=== PATIENT | male | born 2000 | race Caucasian/White ===

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

== ENCOUNTER 2022-09-15 09:42 | Emergency (ER) | payer MEDICAID, SELFPAY ==
[2022-09-15 09:51] VITALS: BP 155/86; PULSE 86; RESP 18; TEMP 36.6; O2SAT 98
--- NOTE | 2022-09-15 18:24 | NUR.NOTE ---
Nursing Note: Access called stating that patient LWBS @ 2599
== END 2022-09-15 10:49 | disposition left before discharge ==
LOC: ER 09:50
PROVIDERS: PCP Pediatrics
DX: Z53.21 Procedure and treatment not carried out due to patient leaving prior to being seen by health care provider (principal)
CPT/HCPCS: 85025

== ENCOUNTER 2022-09-16 22:04 | Emergency (ER) | payer MEDICAID, SELFPAY ==
[2022-09-16 22:24] VITALS: BP 142/75; PULSE 87; RESP 16; TEMP 36.3; O2SAT 98
--- NOTE | 2022-09-16 23:00 | ED.GENADUL_ITS ---
Discharge Plan Disposition Patient Disposition: HOME Condition: Stable Discharge Details Clinical Impression: Constipation Primary Care Provider: Anjel Healy ED Provider: Jerry Cervantes Home Meds and New Rx's Prescriptions: New docusate sodium [Colace] 100 mg capsule 100 mg PO DAILY 20 Days Qty: 20 0RF Discharge Instructions Instructions: Constipation (ED) Additional Instructions: Please follow-up with your primary care physician. Please return to the emergency department for any worsening symptoms. Medical Decision Making 22-year-old male history of constipation presents with constipation over the last 6 days, has developed some abdominal discomfort, nausea dry heaving and one episode of nonbloody nonbilious emesis, abdomen soft nontender nondistended, afebrile nontoxic, no active vomiting. Consider symptomatic constipation versus viral enterocolitis versus unlikely cholecystitis appendicitis bowel obstruction or other serious intra-abdominal pathology. Will trial antiemetics and laxatives. Home care instructions and return precautions given. HPI General Date/Time Provider Initiated Documentation: 09/16/22 22:33 . HPI Narrative: 22-year-old male history of constipation, presents with constipation over the last 6 days, endorses mild abdominal discomfort, he is still able to pass flatus, 1 episode of nonbloody nonbilious emesis did have some retching multiple times earlier today, no current symptoms at this time. Does not take any medications. Related Data Home Medications Medication Instructions Recorded Confirmed docusate sodium 100 mg capsule 100 mg PO DAILY 20 days #20 caps 09/16/22 (Colace) Previous Rx's Medication Instructions Recorded docusate sodium 100 mg capsule 100 mg PO DAILY 20 days #20 caps 09/16/22 (Colace) Allergies Allergy/AdvReac Type Severity Reaction Status Date / Time amoxicillin AdvReac Diarrhea,vo Verified 09/16/22 22:29 mmiting General Stated Complaint: Nausea/Vomit/Diar MICKEY: 3 Review of Systems Narrative: Review of Systems Constitutional: negative Eyes: negative ENT: negative Cardiovascular: negative Respiratory: negative Gastrointestinal: Nausea, vomiting, constipation : negative Musculoskeletal: negative Skin: negative Neurologic: negative Psych: negative PFSH All Active Problems (Updated 09/16/22 @ 23:03 by Jerry Cervantes MD) Constipation (Acute) Attention deficit hyperactivity disorder (ADHD), combined type (Acute) Well adult health check (Acute) Medical History ADHD Surgical History Circumcision Family History Mother Asthma Father No problems noted. Social History Smoking/Tobacco Use Status: Never Smoking risk assessment performed?: Yes Alcohol Intake: never Drug use: Never Substance use type: does not use Do you feel safe at home: Yes Do you feel safe in your relationship?: Yes Exam Narrative Exam Narrative: Physical Examination General: alert, awake, cooperative, resting comfortably, no acute distress HEENT: normocephalic, atraumatic; PERRL, EOM intact, conjunctiva normal; no nasal discharge; moist mucous membranes, oral and pharyngeal mucosa normal, tolerating secretions Neck: supple, trachea midline; full ROM Chest: normal to inspection Respiratory: normal respiratory effort, speaking in full sentences, clear to auscultation, no wheezing, rales or rhonchi Cardiac: regular rate, regular rhythm, S1S2 intact, no murmurs rubs or gallops GI: abdomen soft, non-tender, non-distended; no palpable mass or hepatosplenomegaly Skin: no lesions, rashes or trauma appreciated Neuro: AAOx3, normal speech, moving all extremities Psych: Appropriate mood and affect Course Vital Signs Vital signs: Vital Signs Temperature 36.3 C L 09/16/22 22:24 Pulse 87 09/16/22 22:24 Respiratory Rate 16 09/16/22 22:24 Blood Pressure 142/75 H 09/16/22 22:24 Pulse Oximetry 98 09/16/22 22:24 Temperature 36.3 C L 09/16/22 22:24 Temperature Source Temporal Artery Scan 09/16/22 22:24 Pulse 87 09/16/22 22:24 Respiratory Rate 16 09/16/22 22:24 Respiratory Effort 09/16/22 22:24 Blood Pressure 142/75 H 09/16/22 22:24 Blood Pressure Position Sitting 09/16/22 22:24 Pulse Oximetry 98 09/16/22 22:24 Oxygen Delivery Method Room Air 09/16/22 22:24 Oxygen Flow Rate 0 09/16/22 22:24 Pain Level 8 09/16/22 22:24
[2022-09-16] MEDS: Bisacodyl 5 MG TABEC PO (23:05)
[2022-09-16] MEDS: Ondansetron O.D.T. 4 MG TABEF (23:05)
== END 2022-09-16 23:18 | disposition home or self-care (01) ==
PROVIDERS: Emergency Provider Emergency Medicine; PCP Pediatrics
DX: K59.00 Constipation, unspecified (principal); F90.9 Attention-deficit hyperactivity disorder, unspecified type
CPT/HCPCS: 99283; 99284

== ENCOUNTER 2025-01-18 20:16 | Emergency (ER) | payer SELFPAY ==
[2025-01-18 20:19] VITALS: BP 138/71; PULSE 98; RESP 16; TEMP 37.3; O2SAT 96
[2025-01-18 20:41] VITALS: BP 138/71; PULSE 98; RESP 16; TEMP 37.3; O2SAT 96
[2025-01-18 21:05] LABS: Abs Immature Grans 0.03 10^3/uL (0.0-0.06); Absolute Basophil Count 0.06 10^3/uL (0.0-0.2); Absolute Eosinophil Count 0.18 10^3/uL (0.0-0.7); Absolute Lymphocyte Count 2.37 10^3/uL (1.2-3.4); Absolute Monocyte Count 0.64 10^3/uL (0.1-0.8); Absolute Neutrophil Count 5.81 10^3/uL (1.2-6.7); Basophils % 0.7 %; HCT 43.2 % (40.0-50.0); HGB 14.5 g/dL (13.5-17.5); Immature Grans % 0.3 %; Lymphocytes % 26.1 %; MCH 28.2 pg (27.0-33.0); MCHC 33.6 % (32.0-36.0); MCV 84 fL (80-95); MPV 12.5 fL (8.0-11.0); Neutrophils % 63.9 %; Platelet Count 218 10^3/uL (130-400); RBC 5.15 10^6/uL (4.36-5.78); RDW 12.7 % (11.8-14.1); RDW-SD 38.6 fL; WBC 9.09 10^3/uL (4.4-10.8)
[2025-01-18 21:21] LABS: ALT 53 U/L (16-63); AST 23 U/L (15-37); Albumin 4.3 g/dL (3.4-5.0); Alkaline Phosphatase 109 U/L (46-116); Anion Gap 10.9 mmol/L (3-11); BUN 9 mg/dL (7-18); Bilirubin, Total 0.54 mg/dL (0.2-1.0); CO2 28.1 mmol/L (21.0-32.0); Calcium 9.5 mg/dL (8.5-10.1); Chloride 102 mmol/L (98-107); Estimated GFR 109.13 (mL/min/1.73m2); Glucose 135 mg/dL (74-106); Lipase 32 U/L (<78); Potassium 3.5 mmol/L (3.5-5.1); Sodium 141 mmol/L (136-145); Total Protein 8.1 g/dL (6.4-8.2)
[2025-01-18 21:24] LABS: PTT Activated 28.4 sec (20.6-30.2); Prothrombin Time 10.4 sec (9.1-11.1)
[2025-01-18 21:35] LABS: Bilirubin Negative (Negative); Blood Small (Negative); Clarity Clear (Clear); Glucose Negative (Negative); Ketones 15 mg/dL (Negative); Leukocyte Esterase Negative (Negative); Nitrite Negative (Negative); Specific Gravity 1.015 (1.005-1.025); Urobilinogen 0.2 mg/dL (Up to 0.2); pH 6.5 (5-8)
[2025-01-18 21:44] LABS: WBC 0-2 HPF (0-5)
--- NOTE | 2025-01-18 21:44 | W.ED.GENAD ---
Discharge Plan Disposition Patient Disposition: Home Condition: Stable Discharge Details Clinical Impression: Rectal bleeding Primary Care Provider: Anjel Healy ED Provider: Anjel Lopez Home Meds and New Rx's Prescriptions: No Action No Known Home Meds Discharge Instructions Instructions: Bloody Stools, Adult ED Additional Instructions: You were seen in the emergency department for your rectal bleeding today, this is likely due to internal hemorrhoid, you state you have had hemorrhoids in the past, your hemoglobin is normal and your CT shows no evidence of significant GI bleeding. This should self resolve but if you continue to experience significant bleeding with stools you may need to be reevaluated especially with severe abdominal pain fever or any black stools with significant vomiting. Please follow-up with your primary care for referral to general surgery for chronic subacute rectal bleeding. Referrals: Anjel Healy MD [Primary Care Provider] - Discharge Data Discharge Date/Time-TO BE ENTERED AT DEPARTURE: 01/18/25 23:33 HPI General Date/Time Provider Initiated Documentation: 01/18/25 20:25. HPI Narrative: 24 year-old male presents to ED today by POV/ambulating with a chief complaint of lower abdominal pain with onset for the past several weeks with rectal bleeding with a stool today. Quality described as significant rectal bleeding, saturating 4-5 times wiping- endorses history of hemorrhoids, no radiation to dizziness, syncope, black stools, vomiting, fever, severe abdominal pain. Severity is described as moderate. Palliating factors include nothing specific attempted. Provoking factors include nothing specific. Events leading up to the incident/Associated Symptoms: Patient has not had a colonoscopy. Patient not anticoagulated. Related Data Home Medications ?Medication ?Instructions ?Recorded ?Confirmed Unknown [No Known Home Meds] 01/18/25 01/18/25 Allergies Allergy/AdvReac Type Severity Reaction Status Date / Time amoxicillin AdvReac Diarrhea,vo Verified 01/18/25 20:23 mmiting General Stated Complaint: Abd Prob MICKEY: 3 Review of Systems All systems reviewed & are unremarkable except as noted in HPI and below Exam Narrative Exam Narrative: GENERAL APPEARANCE: Well-nourished, non-toxic, awake and alert, atraumatic, no acute distress. SKIN: Warm, pink, dry, intact, without rashes/lesions/ulcerations. HEAD: Normocephalic, atraumatic, normal hair distribution for gender/age. EYES: Normal conjunctiva, no exudates on lids/lashes. ENT: Nares patent, no circumoral cyanosis, no facial swelling NECK: Supple, trachea midline, painless cervical ROM. LUNGS/CHEST: Lungs CTA bilaterally, non-labored respirations, normal A/P diameter, symmetrical expansion, no chest wall deformity HEART (CV/PV): Regular rate and rhythm without murmur, no peripheral edema, no JVD. ABDOMEN: Soft, non-distended, no guarding, mild L lower abdominal tenderness. patient deferred RAQUEL MSK: Normal ROM, no swelling/deformity to bilateral UEs or LEs, moving all extremities without weakness, no cyanosis, spine midline without tenderness, normal curvature. NEURO: Mental Status AAOx4 - alert to person, place, time, events No facial droop, no forehead involvement. Motor: No focal weakness - strength 5/5 in bilateral UEs and LEs, proximal and distal, symmetric. Sensory: sensation intact to light touch globally. Gait normal: patient ambulated without ataxia into ED room. PSYCH: euthymic, cooperative, pleasant, appropriate speech Course Vital Signs Vital signs: Vital Signs Temperature 37.3 C 01/18/25 20:19 Pulse 98 H 01/18/25 20:19 Respiratory Rate 16 01/18/25 20:19 Blood Pressure 138/71 01/18/25 20:19 Pulse Oximetry 96 01/18/25 20:19 Temperature 37.3 C 01/18/25 20:41 Temperature Source Oral 01/18/25 20:41 Pulse 98 H 01/18/25 20:41 Respiratory Rate 16 01/18/25 20:41 Blood Pressure 138/71 01/18/25 20:41 Pulse Oximetry 96 01/18/25 20:41 Oxygen Delivery Method Room Air 01/18/25 20:41 Oxygen Flow Rate 0 01/18/25 20:41 Pain Level 6 01/18/25 20:42 Lab/Test Results Lab/Test Results: Laboratory Tests Range/Units 01/18/25 01/18/25 20:40 20:55 WBC (4.4-10.8) 10^3/uL 9.09 RBC (4.36-5.78) 10^6/uL 5.15 Hgb (13.5-17.5) g/dL 14.5 Hct (40.0-50.0) % 43.2 MCV (80-95) fL 84 MCH (27.0-33.0) pg 28.2 MCHC (32.0-36.0) % 33.6 RDW (11.8-14.1) % 12.7 Plt Count (130-400) 10^3/uL 218 MPV (8.0-11.0) fL 12.5 H Immature Gran % % 0.3 Neutrophils % % 63.9 Lymphocytes % % 26.1 Monocytes % % 7.0 Eosinophils % % 2.0 Basophils % % 0.7 Nucleated RBC % (0.0-0.3) % 0.0 Absolute Neutrophils (1.2-6.7) 10^3/uL 5.81 Absolute Lymphocytes (1.2-3.4) 10^3/uL 2.37 Absolute Monocytes (0.1-0.8) 10^3/uL 0.64 Absolute Eosinophils (0.0-0.7) 10^3/uL 0.18 Absolute Basophils (0.0-0.2) 10^3/uL 0.06 PT (9.1-11.1) sec 10.4 INR (0.9-1.1) 1.0 APTT (20.6-30.2) sec 28.4 Sodium (136-145) mmol/L 141 Potassium (3.5-5.1) mmol/L 3.5 Chloride (98-107) mmol/L 102 Carbon Dioxide (21.0-32.0) mmol/L 28.1 Anion Gap (3-11) mmol/L 10.9 BUN (7-18) mg/dL 9 Creatinine (0.70-1.30) mg/dL 1.0 Est GFR (CKD-EPI 2020) (mL/min/1.73m2) 109.13 Glucose (74-106) mg/dL 135 H Calcium (8.5-10.1) mg/dL 9.5 Magnesium (1.8-2.4) mg/dL 2.0 Total Bilirubin (0.2-1.0) mg/dL 0.54 AST (15-37) U/L 23 ALT (16-63) U/L 53 Alkaline Phosphatase (46-116) U/L 109 Total Protein (6.4-8.2) g/dL 8.1 Albumin (3.4-5.0) g/dL 4.3 Lipase (<78) U/L 32 Urine Color (Yellow) Yellow Urine Clarity (Clear) Clear Urine pH (5-8) 6.5 Ur Specific [place] (1.005-1.025) 1.015 Urine Protein (Neg-Trace) mg/dL Negative Urine Ketones (Negative) mg/dL 15 H Urine Blood (Negative) Small H Urine Nitrite (Negative) Negative Urine Bilirubin (Negative) Negative Urine Urobilinogen (Up to 0.2) mg/dL 0.2 Ur Leukocyte Esterase (Negative) Negative Urine Glucose (Negative) mg/dL Negative Medical Decision Making This dictation utilizes [id number] dictation software and may contain unedited grammatical errors. 24 year-old male presents to ED today by POV/ambulating with a chief complaint of lower abdominal pain with onset for the past several weeks with rectal bleeding with a stool today. Quality described as significant rectal bleeding, saturating 4-5 times wiping- endorses history of hemorrhoids, no radiation to dizziness, syncope, black stools, vomiting, fever, severe abdominal pain. Severity is described as moderate. Palliating factors include nothing specific attempted. Provoking factors include nothing specific. Events leading up to the incident/Associated Symptoms: Patient has not had a colonoscopy. Patients' medical history: Noncontributory. Family and social history: Noncontributory. Pertinent exam findings / vital signs include benign abdomen, benign cardiopulmonary status, nontoxic and afebrile. Differential / pathologies of concern include GI bleeding, internal hemorrhoids, diarrhea, unlikely infectious diarrhea. Diagnostic studies of: -CBC, CMP, CRP/ESR, magnesium, coags, lipase, UA, CT of the abdomen pelvis with contrast. -CBC is completely benign -CRP and ESR negative -Coags benign -CMP shows no actionable abnormality -Magnesium within normal limits -Lipase negative -UA negative -CTA shows no acute pathology Interventions of: -None. ED Course/Assessment/Plan: 24-year-old male has been having some abdominal pain for the past several weeks with some rectal bleeding today, has a history of hemorrhoids, I suspect internal hemorrhoids, he declined rectal exam today, he has no evidence of severe bleeding on CTA, no anemia, no elevation of white blood cells to suspect infectious diarrhea, no evidence of diverticulitis with perforation or abscess on CTA. I stressed following up with his primary care provider for possible referral to general surgery for colonoscopy Findings not consistent with significant rectal bleeding, infectious diarrhea, colitis, inflammatory bowel disease, emergent abdominal pathology. Disposition of rectal bleeding. Patient verbalized understanding of the plan and return to ED criteria and engaged in shared decision making. Medical Records Medical records reviewed: Yes I reviewed the patient's medical records. Imaging Data Radiologic Study: Attestation: I personally reviewed and interpreted this imaging study as follows: Imaging: CT Scan Radiologist's impression: Exam: CTA Abdomen and Pelvis With Contrast Exam date and time: 01/18/2025 10:01 PM Age: 24 years old Clinical indication: Other: Rectal bleeding; Significant amt TECHNIQUE: Imaging protocol: Computed tomographic angiography of the abdomen and pelvis with contrast. Exam focused on the arteries. 3D rendering (Not supervised by radiologist): MIP and/or 3D reconstructed images were created by the technologist. Contrast material: OMNIPAQUE 350; Contrast volume: 100 ml; Contrast route: INTRAVENOUS (IV); COMPARISON: CT ABDOMEN PELVIS W 08/14/2020 4:19 PM FINDINGS: Aorta: No aortic aneurysm. No aortic dissection. Celiac trunk and mesenteric arteries: No occlusion or significant stenosis. Renal arteries: No occlusion or significant stenosis. Right iliac arteries: No occlusion or significant stenosis. Left iliac arteries: No occlusion or significant stenosis. Liver: No mass. Gallbladder and biliary ducts: Peripherally calcified 1.4 cm gallstone is present in the gallbladder. No prominent biliary ductal dilation. Pancreas: Unremarkable. No mass. No ductal dilation. Spleen: Unremarkable. No splenomegaly. Adrenal glands: Unremarkable. No mass. Kidneys and ureters: Unremarkable. No solid mass. No hydronephrosis. Stomach and bowel: Unremarkable. No obstruction. No mucosal thickening. Appendix: The appendix is visualized and appears normal. Intraperitoneal space: Unremarkable. No free air. No significant fluid collection. Lymph nodes: Unremarkable. No enlarged lymph nodes. Urinary bladder: Unremarkable. No mass. Reproductive: Unremarkable as visualized. Bones/joints: No acute fracture. Soft tissues: Unremarkable. IMPRESSION: No evidence of active GI bleed or other significant bowel abnormality. Incidentally noted cholelithiasis Dictated and Authenticated by: Ezra Aguero MD. Lab Data Lab results reviewed: Yes I reviewed the patient's lab results. Labs: Laboratory Tests Range/Units 01/18/25 01/18/25 20:40 20:55 WBC (4.4-10.8) 10^3/uL 9.09 RBC (4.36-5.78) 10^6/uL 5.15 Hgb (13.5-17.5) g/dL 14.5 Hct (40.0-50.0) % 43.2 MCV (80-95) fL 84 MCH (27.0-33.0) pg 28.2 MCHC (32.0-36.0) % 33.6 RDW (11.8-14.1) % 12.7 Plt Count (130-400) 10^3/uL 218 MPV (8.0-11.0) fL 12.5 H Immature Gran % % 0.3 Neutrophils % % 63.9 Lymphocytes % % 26.1 Monocytes % % 7.0 Eosinophils % % 2.0 Basophils % % 0.7 Nucleated RBC % (0.0-0.3) % 0.0 Absolute Neutrophils (1.2-6.7) 10^3/uL 5.81 Absolute Lymphocytes (1.2-3.4) 10^3/uL 2.37 Absolute Monocytes (0.1-0.8) 10^3/uL 0.64 Absolute Eosinophils (0.0-0.7) 10^3/uL 0.18 Absolute Basophils (0.0-0.2) 10^3/uL 0.06 ESR (0-15) mm/hr 14 PT (9.1-11.1) sec 10.4 INR (0.9-1.1) 1.0 APTT (20.6-30.2) sec 28.4 Sodium (136-145) mmol/L 141 Potassium (3.5-5.1) mmol/L 3.5 Chloride (98-107) mmol/L 102 Carbon Dioxide (21.0-32.0) mmol/L 28.1 Anion Gap (3-11) mmol/L 10.9 BUN (7-18) mg/dL 9 Creatinine (0.70-1.30) mg/dL 1.0 Est GFR (CKD-EPI 2020) (mL/min/1.73m2) 109.13 Glucose (74-106) mg/dL 135 H Calcium (8.5-10.1) mg/dL 9.5 Magnesium (1.8-2.4) mg/dL 2.0 Total Bilirubin (0.2-1.0) mg/dL 0.54 AST (15-37) U/L 23 ALT (16-63) U/L 53 Alkaline Phosphatase (46-116) U/L 109 C-Reactive Protein (<or=0.5) mg/dL 1.00 H Total Protein (6.4-8.2) g/dL 8.1 Albumin (3.4-5.0) g/dL 4.3 Lipase (<78) U/L 32 Urine Color (Yellow) Yellow Urine Clarity (Clear) Clear Urine pH (5-8) 6.5 Ur Specific [place] (1.005-1.025) 1.015 Urine Protein (Neg-Trace) mg/dL Negative Urine Ketones (Negative) mg/dL 15 H Urine Blood (Negative) Small H Urine Nitrite (Negative) Negative Urine Bilirubin (Negative) Negative Urine Urobilinogen (Up to 0.2) mg/dL 0.2 Ur Leukocyte Esterase (Negative) Negative Urine RBC (0-2) HPF 3-5 H Urine WBC (0-5) HPF 0-2 Ur Epithelial Cells (Negative) HPF Moderate Urine Crystals (Negative) HPF Negative Urine Bacteria (Negative) HPF Rare Urine Casts (Negative) LPF Negative Urine Mucus (Negative) Trace Urine Other (Negative) Rare Transitional Ur Culture Indicated? No Urine Glucose (Negative) mg/dL Negative Quality:SDOH Health Related Social Needs: No Data to Display PFSH All Active Problems (Updated 01/18/25 @ 23:05 by SAM Carranza) Rectal bleeding (Acute) Attention deficit hyperactivity disorder (ADHD), combined type (Acute) Well adult health check (Acute) Medical History ADHD Surgical History Circumcision Family History Mother Asthma Father No problems noted. Social History Smoking/Tobacco Use Status: Never Smoking risk assessment performed?: Yes Alcohol Intake: never Drug use: Never Substance use type: does not use Do you feel safe at home: Yes Do you feel safe in your relationship?: Yes
--- NOTE | 2025-01-18 21:45 | DI.CT_ITS ---
Exam(s) CT ABDOMEN PELVIS CTA EXAM: CT ABDOMEN PELVIS CTA CLINICAL HISTORY: rectal bleeding; significant amt. TECHNIQUE: Imaging Protocol: Axial CT angiography was performed with multi-slice acquisition and m ulti-planar and/or 3D reconstructions. CONTRAST MATERIAL: Intravenous: Omnipaque 350 Contrast volume:100 mL Oral: / no COMPARISON: CT CT ABDOMEN PELVIS W from 08/14/2020 FINDINGS: Vascular Structures: Celiac [place]:No evidence of stenosis. SMA: No evidence of stenosis. Renal Arteries: No evidence of stenosis. There is a single renal artery perfusing each kidney. Aorta: No aneurysm. No dissection. No significant stenosis. Iliac Arteries: No evidence of stenosis. Common Femoral Arteries: No evidence of stenosis. Soft Tissues:Unremarkable. Lung bases:No acute findings. Liver: Normal size. Normal density. No measurable mass. Gallbladder and biliary tract: Gallstone. No gallbladder wall thickening. No biliary dilation. Pancreas: Normal density, no abnormal calcifications or inflammatory process. Spleen: Normal. Kidneys: Normal size, contour and axis. No obstructive uropathy. No masses seen. No evidence of calcu li. Adrenal glands: No masses seen. Bladder: No gross wall thickening. No evidence of calculi. No evidence of mass. Bowel: No obstruction or bowel wall thickening. Appendix normal. No source of GI bleeding identified . Peritoneal cavity: No ascites. No focal collection. No mesenteric inflammatory response. Bones: No acute findings. Lymph nodes: Within normal limits. Reproductive: Unremarkable. IMPRESSION: Normal CT Angiogram of the Abdomen. No source of GI bleeding identified. Gallstone incidentally noted. RADIATION DOSE DELIVERED: 3,136.9mGy.cm Total DLP DATA REPOSITORY: All CT scans at this facility are submitted to the National Radiology Data Registry (NRDR) Dose Index Registry (DIR) with the [employer] (ACR). RADIATION OPTIMIZATION: All CT scans at this facility use at least one of these dose optimization te chniques: automated exposure control; mA and/or kV adjustment per patient size (includes targeted exa ms where dose is matched to clinical indication); or iterative reconstruction.
[2025-01-18 21:51] LABS: Epithelial Cells Moderate HPF (Negative)
[2025-01-18 21:52] LABS: Bacteria Rare HPF (Negative); C & S Indicated? No; Casts Negative LPF (Negative); Crystals Negative HPF (Negative); Mucus Trace (Negative); Other Cells Rare Transitional (Negative)
[2025-01-18 22:04] LABS: ESR 14 mm/hr (0-15)
[2025-01-18] MEDS: Normal Saline - Diluent 50 ML VIAL IJ (22:05)
[2025-01-18] MEDS: Omnipaque 350 MG/ML 100 ML BTL IJ (22:05)
--- NOTE | 2025-01-18 22:58 | DI.VRAD_ITS ---
PROCEDURE INFORMATION: Exam: CTA Abdomen and Pelvis With Contrast Exam date and time: 01/18/2025 10:01 PM Age: 24 years old Clinical indication: Other: Rectal bleeding; Significant amt TECHNIQUE: Imaging protocol: Computed tomographic angiography of the abdomen and pelvis with contrast. Exam focused on the arteries. 3D rendering (Not supervised by radiologist): MIP and/or 3D reconstructed images were created by the technologist. Contrast material: OMNIPAQUE 350; Contrast volume: 100 ml; Contrast route: INTRAVENOUS (IV); COMPARISON: CT ABDOMEN PELVIS W 08/14/2020 4:19 PM FINDINGS: Aorta: No aortic aneurysm. No aortic dissection. Celiac trunk and mesenteric arteries: No occlusion or significant stenosis. Renal arteries: No occlusion or significant stenosis. Right iliac arteries: No occlusion or significant stenosis. Left iliac arteries: No occlusion or significant stenosis. Liver: No mass. Gallbladder and biliary ducts: Peripherally calcified 1.4 cm gallstone is present in the gallbladder. No prominent biliary ductal dilation. Pancreas: Unremarkable. No mass. No ductal dilation. Spleen: Unremarkable. No splenomegaly. Adrenal glands: Unremarkable. No mass. Kidneys and ureters: Unremarkable. No solid mass. No hydronephrosis. Stomach and bowel: Unremarkable. No obstruction. No mucosal thickening. Appendix: The appendix is visualized and appears normal. Intraperitoneal space: Unremarkable. No free air. No significant fluid collection. Lymph nodes: Unremarkable. No enlarged lymph nodes. Urinary bladder: Unremarkable. No mass. Reproductive: Unremarkable as visualized. Bones/joints: No acute fracture. Soft tissues: Unremarkable. IMPRESSION: No evidence of active GI bleed or other significant bowel abnormality. Incidentally noted cholelithiasis Dictated and Authenticated by: Ezra Aguero MD. Orderin John Hobbs MD
[2025-01-18 23:32] VITALS: BP 125/82; PULSE 86; RESP 19; TEMP 37.1; O2SAT 98
== END 2025-01-18 23:33 | disposition home or self-care (01) ==
PROVIDERS: Emergency Medicine Emergency Medical Services; Emergency Provider Physician Assistant; PCP Pediatrics
DX: R10.32 Left lower quadrant pain (principal); K62.5 Hemorrhage of anus and rectum
CPT/HCPCS: 80053; 83690; 85652; 99285; 74174; 81003; 81015; 83735; 85025; 85610; 85730; 86140; 99284; J3490